=== PATIENT | female | born 1990 | race Caucasian/White ===

== ENCOUNTER 2017-03-20 13:57 | Emergency (ER) | payer SELFPAY ==
--- NOTE | 2017-03-26 21:34 | ER ---
ADMIT: 03/20/2017 RM/LOC: ER [facility] MR#: [id number] [address] [id number] JERARDOLEIGHANN [address] [place] [address] Emergency Room Report SEX: F AGE: 26 : 1990 DATE: 03/20/2017 CHIEF COMPLAINT: Fall injury to left hip. HISTORY OF PRESENT ILLNESS: This pleasant 26-year-old female who presents after sustaining an injury at home 4 days ago. The patient states she was coming down the stairs early in the morning. She was not quite awake when she missed the last two stairs and fell primarily on her left hip and left low back. She states she works at [employer] and she has been managing the last 2 days with Tylenol and ibuprofen, however, the pain has been severe. She states that she had a popping sensation today and feels like she should be evaluated. Denies hitting her head in this injury. No loss consciousness. States pain is severe, 10/10 primarily over the left low back and lateral aspect of the left hip. COURSE IN EMERGENCY ROOM: Patient seen and examined. She is afebrile and nontoxic. She is in no acute distress. No obvious ecchymosis or swelling over the left hip or low back. She does have tenderness in the paravertebral musculature on the left side of low back extending into the upper buttock over the lateral aspect of the hip. She has full range of motion in the hip and knee. Strength was equal compared bilaterally. Sensation intact bilaterally. Reflexes are equal and brisk bilaterally. She was given Toradol 15 mg IM. IMPRESSION: 1. Left hip contusion. 2. Low back strain. DISPOSITION: Encouraged patient to use naproxen 500 mg p.o. b.i.d. for 7 days. I cautioned her to take this with food and for short course, it does have potential ramification on her stomach. She is to use heat 3 times a day as well as frequent activity to prevent any stiffness. Continue to use Tylenol intermittently with the Aleve for breakthrough pain. She is to follow up with Dr. Grove with any concerns. Questions were sought and answered to the best of my ability and the patient's satisfaction. She was discharged in stable condition. GAURAV Kang / Brian Wright MD / sekoul JOB #: [id number] CC: Brian Wright MD, Attending Physician Fartun Grove MD, Family Physician
== END 2017-03-20 14:40 | disposition home or self-care (01) ==
LOC: ER 13:57
DX: S39.012A Strain of muscle, fascia and tendon of lower back, initial encounter (principal); S70.02XA Contusion of left hip, initial encounter; F31.9 Bipolar disorder, unspecified; Z79.899 Other long term (current) drug therapy; W10.9XXA Fall (on) (from) unspecified stairs and steps, initial encounter; Y92.009 Unspecified place in unspecified non-institutional (private) residence as the place of occurrence of the external cause

== ENCOUNTER 2017-04-09 18:21 | Emergency (ER) | payer SELFPAY ==
--- NOTE | 2017-04-20 14:37 | ER ---
ADMIT: 04/09/2017 RM/LOC: ER [facility] MR#: [id number] [facility] [address] [place] [id number] LEIGHANN KURTZ [address] [place] [address] Emergency Room Report SEX: F AGE: 26 : 1990 DATE: 04/09/2017 CHIEF COMPLAINT: Abdominal pain. HISTORY OF PRESENT ILLNESS: This is a 26-year-old female who has had intermittent abdominal pain for the last few days. She states it is worse when she eats. She describes the pain as sharp, stabbing, in her epigastric region. EMERGENCY ROOM COURSE: CBC, CMP, lipase, urine and urine preg test was done, everything is essentially negative, except for a slightly elevated white count of 10.3. She was given Toradol and then GI cocktail pretty soon after it. The Toradol alone initially did not help, but together did help. I told her this could be gastritis, it could be her gallbladder. It sounds more gallbladder in nature because it is worse especially with fatty meals. She had ate 2 hours prior to arrival, so I told her to follow up with her primary care physician to see if they would want to do an outpatient abdominal ultrasound. I told her to follow a nonfat diet. Push fluids. Also if she develops pain, she can try Zantac or Pepcid [id number]. CLINICAL IMPRESSION: Abdominal pain, epigastric region. DISPOSITION: Stable at discharge. Pain is improved. Again, we will follow up with her primary care physician later this week. GAURAV Lipscomb / Garland Jacques MD / sekoul JOB #: [id number] CC: Brian Wright MD, Attending Physician Fartun Grove MD, Family Physician
== END 2017-04-09 20:09 | disposition home or self-care (01) ==
LOC: ER 18:21
DX: R10.13 Epigastric pain (principal); F32.9 Major depressive disorder, single episode, unspecified; F17.210 Nicotine dependence, cigarettes, uncomplicated; F31.9 Bipolar disorder, unspecified; Z90.89 Acquired absence of other organs; Z79.899 Other long term (current) drug therapy

== ENCOUNTER 2017-04-10 08:38 | Emergency (ER) | payer SELFPAY ==
--- NOTE | 2017-04-23 08:19 | ER ---
ADMIT: 04/10/2017 RM/LOC: ER [facility] MR#: [id number] [address] [address] JERARDOREESELEIGHANN L [address] [place] [address] Emergency Room Report SEX: F AGE: 26 : 1990 DATE: 04/10/2017 ADDENDUM: 26-year-old female coming in with epigastric pain. She was seen, worked up yesterday. I repeated her lipase, that still negative. I got an ultrasound, that is negative. She is supposed to see Dr. Grove this week. Clear liquids today then advance diet slowly. Zantac 300 at bedtime, she can get that [id number]. CONDITION ON DISCHARGE: Good. Elder Payne MD/ chad JOB #: [id number] CC: Elder Payne MD, Attending Physician UNKNOWN, Family Physician
== END 2017-04-10 10:30 | disposition home or self-care (01) ==
LOC: ER 08:38
DX: R10.13 Epigastric pain (principal); R11.2 Nausea with vomiting, unspecified; F17.210 Nicotine dependence, cigarettes, uncomplicated; F31.9 Bipolar disorder, unspecified; Z90.89 Acquired absence of other organs; Z79.899 Other long term (current) drug therapy